=== PATIENT | male | born 1980 | race Asian ===

== ENCOUNTER 2018-01-27 16:35 | Emergency (ER) | payer MEDICAID ==
[~2018-01-27] VITALS: Ht 167.6 cm; Wt 61.2 kg
[2018-01-27 16:55] VITALS: BP 123/85
--- NOTE | 2018-01-27 17:01 | Emergency Room Report ---
History of Present Illness General Chief Complaint: Animal Bite Source: Patient Present Illness HPI 37-year-old male presents to the emergency department for dog bite to the left hand since yesterday. Patient denies pain at this time he reports some mild erythema and scabbing. Patient reports very little bleeding at time of getting bitten. Patient states that the dog was one of his friends however he is worried about rabies. Patient describes the dog is a smaller dog and he denies having bony tenderness. Patient states he has not immune compromised. Patient reports that he is right-hand dominant. Denies numbness tingling or loss of sensation or gross motor movements of the extremities, incontinence of bowel or bladder. Denies CP, Palpitations, LOC, AMS, dizziness, Changes in Vision, weakness or a sudden severe headache. Allergies: Coded Allergies: No Known Allergies (Unverified , 01/27/18) Patient History Past Medical History: see triage record Past Surgical History: none Pertinent Family History: none Immunizations: UTD Reviewed Nursing Documentation: PMH: Agreed; PSxH: Agreed Nursing Documentation-PMH Past Medical History: No Stated History Review of Systems All Other Systems: negative except mentioned in HPI Physical Exam Vital Signs Date Time Temp Pulse Resp B/P (MAP) Pulse Ox O2 Delivery O2 Flow Rate FiO2 01/27/18 16:47 98.3 100 18 123/85 96 Room Air 98.2 Sp02 EP Interpretation: reviewed, normal General Appearance: no apparent distress, alert, GCS 15, non-toxic Head: normocephalic, atraumatic Eyes: bilateral eye normal inspection, bilateral eye PERRL ENT: hearing grossly normal, normal voice Neck: full range of motion Respiratory: chest non-tender, lungs clear, normal breath sounds, speaking full sentences Cardiovascular #1: regular rate, rhythm, normal capillary refill Musculoskeletal: back normal, gait/station normal, normal range of motion, non- tender Neurologic: alert, oriented x3, responsive, motor strength/tone normal, sensory intact, speech normal, grossly normal Psychiatric: judgement/insight normal Skin: normal color, no rash, warm/dry, well hydrated, other - dog bite ( puncture to the dorsal and palmar aspect of the left hand. no bony ttp, FROM not through and though Lymphatic: no adenopathy Medical Decision Making PA Attestation Dr. Schwartz is my supervising Physician whom patient management has been discussed with. Diagnostic Impression: Primary Impression: Dog bite of hand Qualified Codes: S61.452A - Open bite of left hand, initial encounter; W54.0XXA - Bitten by dog, initial encounter ER Course 37-year-old male presents to the emergency department for dog bite to the left hand since yesterday. Patient denies pain at this time he reports some mild erythema and scabbing. Patient reports very little bleeding at time of getting bitten. Patient states that the dog was one of his friends however he is worried about rabies. Patient describes the dog is a smaller dog and he denies having bony tenderness. Patient states he has not immune compromised. Patient reports that he is right-hand dominant. Denies numbness tingling or loss of sensation or gross motor movements of the extremities, incontinence of bowel or bladder. Denies CP, Palpitations, LOC, AMS, dizziness, Changes in Vision, weakness or a sudden severe headache. Pt reports tetanus is UTD. rabies on animal is UTD Ddx considered but are not limited to Cellulitis, rabies, fracture, neurovascular compromise of extremity. Vital signs: are WNL, pt. is afebrile H&PE are most consistent with dog bite, scabbed, primarily puncture wounds to the dorsum and palmar aspect of the left hand, not through and though. ORDERS: none required at this time, the diagnosis is clinical ED INTERVENTIONS: -Wounds cleaning/ irrigation performed. Bacitracin and sterile dressing was placed. -D/w pt. signs of infection to watch for and symptoms that would indicate prompt return to the closest ED. DISCHARGE: At this time pt. is stable for d/c to home. Will provide printed patient care instructions, and any necessary prescriptions. Care plan and follow up instructions have been discussed with the patient prior to discharge. * Augmentin TID x 7 days. Last Vital Signs Date Time Temp Pulse Resp B/P (MAP) Pulse Ox O2 Delivery O2 Flow Rate FiO2 01/27/18 16:47 98.3 100 18 123/85 96 Room Air 98.2 Disposition: HOME, SELF-CARE Condition: Stable Scripts Amoxicillin/Potassium Clav 875-125* (AUGMENTIN 875-125 TABLET*) 1 Each Tablet 1 TAB ORAL TWICE A DAY for 7 Days, #14 TAB Prov: Iesha Funez 01/27/18 Patient Instructions: Animal Bite Additional Instructions: Take medications as directed. Follow up with a Primary Care Provider in 3-5 days, even if your symptoms have resolved. --Please review list of primary care clinics, if you do not already have a primary care provider Return sooner to ED if new symptoms occur, or current symptoms become worse. - Please note that this Emergency Department Report was dictated using [employer] lat[employer] operator technology software, occasionally this can lead to erroneous entry secondary to interpretation by the dictation equipment. Iesha Funez Jan 27, 2018 17:01
[2018-01-27] MEDS ORDERED: AUGMENTIN 875-1 EAC1 ORAL (17:02)
[2018-01-27] MEDS ORDERED: Bacitracin Oint UD TOPIC ONE (17:15)
[2018-01-27 17:16] VITALS: BP 123/85
== END 2018-01-27 17:17 | disposition home or self-care (01) ==
LOC: EMR 17:15
DX: S61.452A Open bite of left hand, initial encounter (principal); W54.0XXA Bitten by dog, initial encounter
CPT/HCPCS: 99283

== ENCOUNTER 2018-09-15 18:28 | Emergency (ER) | payer MEDICAID ==
[~2018-09-15] VITALS: Ht 170.2 cm; Wt 68.0 kg
[~2018-09-15 18:28] MED LIST: AUGMENTIN 875-1 EAC1 ORAL
[2018-09-15] MEDS ORDERED: NKM (18:34)
[2018-09-15 18:38] VITALS: BP 124/86
[2018-09-15] MEDS ORDERED: CIPRODEX OTIC7.5 M1 LEFT EAR (19:23)
--- NOTE | 2018-09-15 19:23 | Emergency Room Report ---
History of Present Illness General Chief Complaint: Earache Source: Patient Present Illness HPI 38-year-old male presents to the emergency department complaining of itching sensation inside the left ear canal with some pain that he describes as 5 out of 10 in severity. Patient denies fevers, chills, ear discharge, bleeding, recent submerged in water. Patient denies history of immunocompromise he denies swollen tender lymph nodes trauma to the ear. Patient denies decrease or changes in his hearing. Denies headache or tinnitus. Allergies: Coded Allergies: No Known Allergies (Unverified , 01/27/18) Patient History Past Medical History: see triage record Past Surgical History: none Pertinent Family History: none Reviewed Nursing Documentation: PMH: Agreed; PSxH: Agreed Nursing Documentation-PMH Past Medical History: No Stated History Review of Systems All Other Systems: negative except mentioned in HPI Physical Exam Vital Signs Date Time Temp Pulse Resp B/P (MAP) Pulse Ox O2 Delivery O2 Flow Rate FiO2 09/15/18 18:32 98.4 89 18 120/87 96 Room Air Sp02 EP Interpretation: reviewed, normal General Appearance: no apparent distress, alert, GCS 15, non-toxic Head: normocephalic, atraumatic Eyes: bilateral eye normal inspection, bilateral eye PERRL ENT: hearing grossly normal, normal pharynx, normal voice, other - Left ear canal is macerated, some external ear tenderness to palpation, creamy white d/c noted in the Left ear canal. the TM is WNL. Neck: full range of motion Respiratory: lungs clear, normal breath sounds, speaking full sentences Cardiovascular #1: regular rate, rhythm Musculoskeletal: back normal, gait/station normal, normal range of motion, non- tender Neurologic: alert, oriented x3, responsive, motor strength/tone normal, sensory intact, normal gait, speech normal, grossly normal Psychiatric: judgement/insight normal Skin: normal color, no rash, warm/dry, well hydrated Lymphatic: no adenopathy Medical Decision Making PA Attestation Dr. Schwartz is my supervising Physician whom patient management has been discussed with. Diagnostic Impression: Primary Impression: Otitis externa of left ear Qualified Codes: H60.502 - Unspecified acute noninfective otitis externa, left ear ER Course 38-year-old male presents to the emergency department complaining of itching sensation inside the left ear canal with some pain that he describes as 5 out of 10 in severity. Patient denies fevers, chills, ear discharge, bleeding, recent submerged in water. Patient denies history of immunocompromise he denies swollen tender lymph nodes trauma to the ear. Patient denies decrease or changes in his hearing. Denies headache or tinnitus. Ddx considered but are not limited to OM, OE, mastoiditis, TM perforation, FB, shingles just to name a few. Vital signs: are WNL, pt. is afebrile H&PE are most consistent with otitis Externa ORDERS: none required at this time, the diagnosis is clinical -OTOSCOPY: Left ear canal is macerated, some external ear tenderness to palpation, creamy white d/c noted in the Left ear canal. the TM is WNL. ED INTERVENTIONS: None required at this time. DISCHARGE: At this time pt. is stable for d/c to home. With PO ABX. Will provide printed patient care instructions, and any necessary prescriptions. Care plan and follow up instructions have been discussed with the patient prior to discharge. Last Vital Signs Date Time Temp Pulse Resp B/P (MAP) Pulse Ox O2 Delivery O2 Flow Rate FiO2 09/15/18 18:38 98.2 84 19 124/86 99 Room Air Disposition: HOME, SELF-CARE Condition: Stable Patient Instructions: Otitis Externa, [id number] Additional Instructions: Take medications as directed. Follow up with a Primary Care Provider in 3-5 days, even if your symptoms have resolved. --Please review list of primary care clinics, if you do not already have a primary care provider Return sooner to ED if new symptoms occur, or current symptoms become worse. - Please note that this Emergency Department Report was dictated using [email or web address] technology software, occasionally this can lead to erroneous entry secondary to interpretation by the dictation equipment. Iesha Funez Sep 15, 2018 19:23
[2018-09-15 19:30] VITALS: BP 126/84
== END 2018-09-15 19:32 | disposition home or self-care (01) ==
LOC: EMR 19:00
DX: H60.502 Unspecified acute noninfective otitis externa, left ear (principal)
CPT/HCPCS: 99282